=== PATIENT | female | born 1970 | race Caucasian/White ===

== ENCOUNTER 2017-12-06 01:48 | Inpatient (IN) | payer OTHER ==
[~2017-12-06] VITALS: Ht 165.1 cm; Wt 84.6 kg
[~2017-12-06 01:48] MED LIST: KEFLEX500 M1 PO
--- NOTE | 2017-12-06 01:57 | ED CARDIAC/CP/PALPITATIONS ---
History of Present Illness General Chief Complaint: Chest Pain Stated Complaint: " CHEST PAIN SINCE YESTERDAY MORNING,HEADACHE" Source: patient, old records Exam Limitations: no limitations Vital Signs & Intake/Output Vital Signs & Intake/Output Vital Signs Date Time Temp Pulse Resp B/P B/P Pulse O2 O2 Flow FiO2 Mean Ox Delivery Rate 12/068 103 20 124/77 98 Room Air 12/06 0210 99 Room Air 12/06 0158 98.1 101 18 144/74 99 Room Air Allergies Coded Allergies: iodine (Intermediate, RASH, BLISTERS 03/27/17) Reconcile Medications Cephalexin (Keflex) 500 MG CAPSULE 1 CAP PO 4 TIMES/DAY infected ingrown toenail Triage Note: PT TO ED C/O CHEST PAIN SINCE WAKING UP YESTERDAY MORNING. ALSO C/O MIGRAIN FOR 3-4 DAYS. PMH OF 3 AK'S. PAIN WORSE WITH MOVEMENT. DR ARSHAD AT BEDSIDE TO EVAL PT. SKIN WARM AND DRY Triage Nurses Notes Reviewed? yes HPI: Patient woke up yesterday morning with substernal chest tightness. The pain has been constant throughout the day but Increasing. Patient States It Also Worsens with Exercise and Then Decreases with Rest However Does Not Go Away. There Is No Shortness of Breath. Patient Had to Work This Evening and Could Not Get Anybody to Cover Her Shift but When Her Shift Ended She Came into the Emergency Department for Evaluation. She Rates the Tightness at 7 Out Of 10. She Denies Any Orthopnea. Patient is also complaining of headache that she has had for the past 4 days. Patient does of migraines and states this pain is similar to prior episodes. She describes a throbbing sensation above the left eye. Positive photophobia. No radiation. The pain is constant. She rates the pain at 5 out of 10. Past History Travel History Traveled to [place] past 21 day No Medical History Any Pertinent Medical History? see below for history Neurological: migraine Cardiovascular: CAD, hypertension, hyperlipidemia, myocardial infarction Endocrine: diabetes Surgical History Surgical History: non-contributory Psychosocial History What is your primary language Hebrew Tobacco Use: Quit >30 days ago ETOH Use: denies use Illicit Drug Use: denies illicit drug use Family History Hx Contributory? No Review of Systems Review of Systems Constitutional: Reports: no symptoms. EENTM: Reports: no symptoms. Respiratory: Reports: no symptoms. Cardiovascular: Reports: see HPI, chest pain. GI: Reports: no symptoms. Genitourinary: Reports: no symptoms. Musculoskeletal: Reports: no symptoms. Skin: Reports: no symptoms. Neurological/Psychological: Reports: see HPI, headache. Hematologic/Endocrine: Reports: no symptoms. Immunologic/Allergic: Reports: no symptoms. All Other Systems: Reviewed and Negative Physical Exam Physical Exam General Appearance: well developed/nourished, alert, awake, anxious, moderate distress Head: atraumatic, normal appearance Eyes: Bilateral: PERRL, EOMI. Ears, Nose, Throat: normal pharynx, normal ENT inspection, hearing grossly normal Neck: normal inspection, supple, full range of motion Respiratory: normal breath sounds, chest non-tender, no respiratory distress, lungs clear Cardiovascular: regular rate/rhythm, normal peripheral pulses Gastrointestinal: normal bowel sounds, soft, non-tender, no organomegaly Back: normal inspection, normal range of motion Extremities: normal inspection, normal capillary refill, normal range of motion, no edema Neurologic/Psych: no motor/sensory deficits, awake, alert, oriented x 3, normal gait, normal mood/affect Skin: intact, normal color, warm/dry Lymphatic: no anterior cervical tanika Core Measures ACS in differential dx? Yes CVA/TIA Diagnosis No Sepsis Present: No Sepsis Focused Exam Completed? No Progress Differential Diagnosis: AMI, costochondritis, musculoskeletal pain, myocarditis, pericarditis, pneumonia, pneumothorax, pulmonary embolism Plan of Care: Orders Procedure Date/time Status Heart Healthy Diet 12/06 B Active ED Holding Orders 12/06 310 Active Admit to inpatient 12/06 310 Active Vital Signs 12/06 031 Active Code Status 12/06 310 Active Telemetry/Director Of Outside Sales 12/06 015 Active TROPONIN LEVEL 12/06 015 Complete D-DIMER 12/06 015 Complete COMPREHENSIVE METABOLIC PANEL 12/06 015 Complete CBC WITHOUT DIFFERENTIAL 12/06 015 Complete EKG 12/06 0149 Active Current Medications Sig/Amadeo Start time Last Medication Dose Stop Time Status Admin Nitroglycerin 0.4 MG ONCE ONE 12/06 0230 UNVr 12/06 (Nitrostat) 12/06 023 0223 Laboratory Tests 12/06/17 0211: Anion Gap 14, Estimated GFR > 60, BUN/Creatinine Ratio 25.0, Glucose 171 H, Calcium 8.5, Total Bilirubin 1.9 H, AST 60 H, ALT 24, Alkaline Phosphatase 72, Troponin I 0.02, Total Protein 7.4, Albumin 3.7, Globulin 3.7, Albumin/Globulin Ratio 1.0 L, D-Dimer High Sensitivty < 200, CBC w Diff MAN DIFF ORDERED, RBC 3.93 L, MCV 85.3, MCH 30.5, MCHC 36.0, RDW 13.8, MPV 7.8, Segmented Neutrophils 38 L, Band Neutrophils 3, Lymphocytes 52 H, Monocytes 7, Platelet Estimate ADEQUATE, Normocytic RBCs VERIFIED, Normochromic RBCs VERIFIED Diagnostic Imaging: Viewed by Me: Radiology Read. Discussed w/RAD: Radiology Read. CXR Impression: PATIENT: JOSEPH DEE PRESENT AGE: 47 PATIENT ACCOUNT NO: [id number] : 69 LOCATION: [facility] ORDERING PHYSICIAN: Mumtaz Arshad MD SERVICE DATE: 12/06/17 EXAM TYPE: RAD - XRY- PORTABLE CHEST XRAY EXAMINATION: XR PORTABLE CHEST CLINICAL INFORMATION: Chest pain COMPARISON: None TECHNIQUE: Portable frontal view of the chest was obtained. FINDINGS: The lungs are clear with no focal consolidation. No evidence of pneumothorax, pulmonary edema, or pleural effusions. The cardiomediastinal silhouette is unremarkable. No acute osseous findings. IMPRESSION: No acute cardiopulmonary findings. DICTATED BY: Krzysztof Joy MD DATE/TIME DICTATED:08/25 SPARE PARTS CLERK:VERONICA DATE/TIME TRANSCRIBED:12/06/17237 CONFIDENTIAL, DO NOT COPY WITHOUT APPROPRIATE AUTHORIZATION. <Electronically signed in Other Vendor System> SIGNED BY: Krzysztof Joy MD 12/06/17241 Initial ED EKG: NSR, no ST T wave changes Rhythm Strip: normal sinus rhythm Comments: PAIN DECREASED TO 2 OUTOF 10 AFTER NITRO PAIN IS GONE AFTER SECOND NITRO. Departure Departure Disposition: STILL A PATIENT Condition: Guarded Clinical Impression Primary Impression: ACS (acute coronary syndrome) Secondary Impressions: Migraine Referrals: Unknown (PCP/Family) Departure Forms: Customer Survey General Discharge Information Admission Note Spoke With: Thompson Temple MD Documentation of Exam: Documentation of any treatments & extenuating circumstances including Concerns Regarding Discharge (functional status, medication knowledge or non-compliance, living conditions, etc.) that warrant an admission rather than observation: [ TELE MONITORING, SERIAL ENZYMES, CARDIOLOGY CONSULTATION, POSSIBLE CATH, IV HEPARIN IF PAIN COMES BACK.] Critical Care Note Critical Care Note Critical Care Time: mins: (45 MIN)
--- NOTE | 2017-12-06 02:42 | RADIOLOGY REPORT ---
EXAMINATION: XR PORTABLE CHEST CLINICAL INFORMATION: Chest pain COMPARISON: None TECHNIQUE: Portable frontal view of the chest was obtained. FINDINGS: The lungs are clear with no focal consolidation. No evidence of pneumothorax, pulmonary edema, or pleural effusions. The cardiomediastinal silhouette is unremarkable. No acute osseous findings. IMPRESSION: No acute cardiopulmonary findings.
[2017-12-06 03:00] LABS: HEMATOCRIT 33.5 % (37-47); MEAN CORPUSCULAR VOLUME 85.3 FL (81.0-99.0); MEAN PLATELET VOLUME 7.8 FL (7.4-10.4); PLATELET COUNT 272 /CUMM (130-400); RBC DISTRIBUTION WIDTH 13.8 % (11.5-14.5); RED BLOOD CELL CT 3.93 /CUMM (4.20-5.40)
[2017-12-06 03:02] LABS: MEAN CORPUSCULAR HGB 30.5 PG (27.0-31.0)
--- NOTE | 2017-12-06 04:17 | History & Physical ---
Malika Marcelino MD 12/06/17 0417: General Information and HPI MD Statement: I have seen and personally examined JOSEPH DEE and documented this H&P. The patient is a 47 year old F who presented with a patient stated chief complaint of [chest pain]. Source of Information: patient Exam Limitations: no limitations History of Present Illness: Patient is a 47-year-old female with past medical history of recently diagnosed obstructive sleep apnea on CPAP for the past few weeks, CAD status post 3 MIs and 2 stents currently on a baby aspirin, hypertension, hyperlipidemia, diabetes presenting this admission with chief complaint of chest pain. Patient states that she started having chest pain the morning of 12/05. Describes the pain as diffuse, epigastric pain that radiates to the sides underneath her breasts and up to her jaw and back. Patient describes the pain as a heaviness and rates it a 6-8 out of 10 in severity. Pain decreased to 2 out of 10 after receiving nitroglycerin 1 in the ED and completely resolved with a second dose of nitroglycerin. Patient reports that the pain occurs both at rest and with exertion howeverthat it does worsen with activity. Patient denies shortness of breath, palpitations, diaphoresis, nausea/vomiting. Reports bilateral leg swelling. Patient also reports having migraines for the past few days. Patient notes that she has a history of migraines however has not had them for quite some time until now. Patient states that she has been taking Excedrin which has helped. Patient reports photophobia with migraine. Patient's past medical history is notable for 3 myocardial infarctions in the past with 2 stents. Patient had her first stent in 2006 which stenosed and patient required a second stent 8 months after which patient also reports failed however patient is unsure if she had a cardiac cath to confirm this. 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 Rowell in [place]. Reports she last had an EKG treadmill stress test in 2017 which she states was normal. Past surgical history: Stents 2, Patient family history significant for coronary artery disease with both her dad and grandmother requiring open heart surgery. Reports mother has diabetes and hypertension. Patient reports increased stress at work. States that she works at [employer] and has been working a lot of nights which is why she waited until this evening to be seen in the ED. Patient denies smoking (quit 7 years prior to this admission ), denies illicit drug use or alcohol use. Patient denies any recent travel or sick contacts. Patient denies any allergies to medications. Patient reports that she is on insulin long-acting 10 units at bedtime (is unsure of exact medication), Janumet twice a day, farsiga, metoprolol, fenofibrate, Crestor, lisinopril, aspirin, Prilosec. In the ED patient received aspirin 325 mg, Tylenol 650 mg, nitroglycerin 0.4 mg Allergies/Medications Allergies: Coded Allergies: iodine (Intermediate, RASH, BLISTERS 03/27/17) Home Med list Aspirin (Ecotrin*) 81 MG TABLET.DR 1 TAB PO DAILY CAD (Reported) Fenofibrate Nanocrystallized (Tricor) 145 MG TABLET 1 TAB PO DAILY HLD Insulin Regular (Novolin R Inj) 1,000 UNITS/10 ML DRE 0 UNITS SC SEE ADMIN CRITERIA DIABETES (Reported) Metoprolol Tartrate 25 MG TABLET 0.5 TAB PO DAILY HEART (Reported) Rosuvastatin Calcium (Crestor) 40 MG TABLET 1 TAB PO DAILY HLD (Reported) Past History Travel History Traveled to [place] past 21 day No Medical History Neurological: migraine Cardiovascular: CAD, hypertension, hyperlipidemia, myocardial infarction Endocrine: diabetes Surgical History Surgical History: non-contributory Past Family/Social History Psychosocial History ETOH Use: denies use Illicit Drug Use: denies illicit drug use Review of Systems Review of Systems Constitutional: Reports: no symptoms. Cardiovascular: Reports: see HPI. Respiratory: Reports: no symptoms. GI: Reports: no symptoms. Genitourinary: Reports: no symptoms. Musculoskeletal: Reports: no symptoms. Skin: Reports: no symptoms. Neurological/Psychological: Reports: see HPI. Hematologic/Endocrine: Reports: no symptoms. Immunologic/Allergic: Reports: no symptoms. Exam & Diagnostic Data Last 24 Hrs of Vital Signs/I&O Vital Signs Date Time Temp Pulse Resp B/P B/P Pulse O2 O2 Flow FiO2 Mean Ox Delivery Rate 12/06 022 103 20 124/77 98 Room Air 12/06 0210 99 Room Air 12/06 0158 98.1 101 18 144/74 99 Room Air Intake & Output 12/06 0800 12/06 0000 12/05 1600 Intake Total 0 Output Total Balance 0 Intake, Oral 0 Patient 186 lb Weight Weight Reported by Patient Measurement Method Physical Exam General Appearance Alert, Oriented X3, Cooperative, No Acute Distress Skin No Rashes, No Breakdown, No Significant Lesion Skin Temp/Moisture Exam: Warm/Dry HEENT Atraumatic, PERRLA, EOMI, Mucous Membr. moist/pink Cardiovascular Regular Rate, Normal S1, Normal S2, No Murmurs Lungs Clear to Auscultation, Normal Air Movement Abdomen Normal Bowel Sounds, Soft, No Tenderness Neurological Normal Speech, Cranial Nerves 3-12 NL Extremities No Clubbing, No Cyanosis, No Edema, Normal Pulses, No Tenderness/ Swelling Vascular Normal Pulses, Pulses Symmetrical Last 24 Hrs of Labs/Reese: Laboratory Tests 12/06/17 0211: Anion Gap 14, Estimated GFR > 60, BUN/Creatinine Ratio 25.0, Glucose 171 H, Calcium 8.5, Phosphorus 4.9 H, Magnesium 1.3 L, Total Bilirubin 1.9 H, AST 60 H, ALT 24, Alkaline Phosphatase 72, Troponin I 0.02, Total Protein 7.4, Albumin 3.7, Globulin 3.7, Albumin/Globulin Ratio 1.0 L, TSH Pending, Free T4 Pending, D-Dimer High Sensitivty < 200, CBC w Diff MAN DIFF ORDERED, RBC 3.93 L, MCV 85.3, MCH 30.5, MCHC 36.0, RDW 13.8, MPV 7.8, Segmented Neutrophils 38 L, Band Neutrophils 3, Lymphocytes 52 H, Monocytes 7, Platelet Estimate ADEQUATE, Normocytic RBCs VERIFIED, Normochromic RBCs VERIFIED Assessment/Plan Assessment: Patient is as 47-year-old female with significant cardiac history presenting this admission with typical anginal symptoms with substernal pain radiating to the jaw relieved with nitroglycerin. Patient's EKG and troponins are negative at this time. Patient has a significant cardiac risk with a ALLISON score of 4. giving her a 20% risk at 14 days of all cause mortality, new or recurrent NC or severe recurrent ischemia requiring urgent revascularization. It is therefore prudent to admit the patient to the telemetry floor for close monitoring. 1. ACS, Unstable angina - Admit to telemetry - Continuous telemetry monitoring - Serial EKG and troponins - Cardiology consult - Aspirin 81 mg - Morphine when necessary - Nitroglycerin when necessary - Oxygen supplementation when necessary - Echo - Lipid panel - TSH - Continue atorvastatin - Continue low-dose metoprolol - Continue lisinopril 2. History of diabetes - Hold all oral hypoglycemic agents - Place on insulin sliding scale with Accu-Cheks 3 times a day/daily at bedtime - Lantus 10 units at bedtime - Hemoglobin A1c 3. History of obstructive sleep apnea - TRC - CPAP at night 4. History of hypertension - Continue metoprolol and lisinopril 5. History of hyperlipidemia - Continue statin and fenofibrate 6. History of GERD - Continue Prilosec 7. Migraine - now resolved Code: Full code DVT prophylaxis: Alps, Lovenox Diet: Consistent carbohydrate diet As Ranked By This Provider Problem List: 1. ACS (acute coronary syndrome) 2. Migraine Core Measures/Misc (04/24) Acute Coronary Syndrome ACS Diagnosis: Yes Congestive Heart Failure Congestive Heart Failure Diagnosis No Cerebrovascular Accident CVA/TIA Diagnosis: No VTE (View Protocol) VTE Risk Factors Age>40 No Mechanical VTE Prophylaxis d/t N/A MechProphylax Ordered No VTE Pharm Prophylaxis d/t NA PharmProphylax ordered Sepsis (View protocol) Sepsis Present: No Inocente Myles 12/06/17 0419: Resident Review Statement Resident Statement: examined this patient, discussed with fall intern, agreed with fall intern, reviewed EMR data (avail), discussed with nursing, discussed with case mgmt, reviewed images, amended to note Other Findings: This is 47 year-old female with medical history of CAD, myocardial infarction s/ p 2 stent 2006, hypertension, hyperlipidemia, DM type 2 on insulin, migraine, recently diagnosed with obstructive sleep apnea on CPAP. She presented to the emergency department with a chief complaint of substernal chest tightness and pain. She stated that when she woke up yesterday morning the substernal chest tightness/pain started. She report that the pain has been constant throughout the day on/off, -02/14 inseverity but start to increasing during the night and also worsens with exercise and then decreases with rest but not completely resolved. Patient is also complaining of headache that she has had for the past 4 days. Patient has Hx of migraines and states this pain is similar to prior episodes. She stated that she had 2 stent placed, she stated that the 1st one was in mid 2006 that failed after 8 month and she had another one, she report that she had total of 3 cardic cath, and one recent stress test last year that was within normal. She deny any SOB, heart racing, orthopnea, fever, chills, abdominal pain, nausea, vomiting. Her pain subsided after receiving 2 doses of sublingual nitroglycerin in the ED. Physical examination, lab and imaging as above. ALLISON Risk Score=4. Problem list: -Acute chest pain -Unstable angina Plan: -Admit patient to telemetry floor -Vitals every shift -Serial troponin and EKG -Echocardiogram -Obtain lipid panel, TSH, free T4, hemoglobin A1c -Sublingual nitroglycerin as needed for chest pain and IV morphine. -Continue home medication of aspirin, metoprolol, lisinopril, atorvastatin, fenofibrate -Cardiology consultation in a.m. -Accu-Chek, insulin sliding scale, Levemir 10 units Qpm -Carbohydrate consistent diet -Please confirm her home medication -Pain pathway -DVT prophylaxis subcutaneous Lovenox -Full code. Maverick MARTELL, [facility] 12/06/17 0454: Attending MD Review Statement Attending Statement Attending MD Statement: examined this patient, discuss w/resident/PA/CONTACT OFFICER, agreed w/resident/PA/CONTACT OFFICER, reviewed images, amended to note Attending Assessment/Plan: 47 yo obese F with h/o T2DM, HTN, CAD s/p NC's X3 and two stents (2006), HLD, DEREK on CPAP is here for evaluation of substernal chest heaviness radiating to bilateral shoulder and jaw region. Symptoms started earlier yesterday morning and gradually increased in severity. It was worse on exertion and would be less severe at rest, however did not go away. Patient works night shifts at [employer] and has been trying to shift to daytime jobs. She was at work tonight and came to the ER as soon as her shift ended at 2 AM. She received first nitro whcih brought the pain down from 7 to 2 and with second nitro the pain disappeared. She was pain free at the time of our evaluation. Patient used to follow [employer] Dr. Hastings ([place] [facility]) but has not seen him for over 7 yrs. She states that her stents have failed but she had been symptom free all these years. She underwent an exercise stress test last year which was normal as per PCP. Patient has a h/o migraine headaches and recently suffered one few days ago. Currently she has a headache but no photophobia which she attributes to nitro use. Vitals stable except for tachycardia. Exam as above. Labs: Na 132, bicarb 17, glucose 171, Mag 1.3, T. Bili 1.9, AST 60, ALT 24, troponin 0.02. CXR: no acute findings. EKG: sinus tachycardia, no acute findings. Assessment and plan: 1. Unstable angina, high ALLISON score 2. History of CAD s/p NC and stents 3. Hypomagnesemia 4. Elevated total bilirubin and AST ?etiology 5. T2 DM on insulin 6. Essential hypertension 7. Obesity - Admit to Telemetry - Serial EKG and troponin - Continue aspirin, beta altagracia, statin, morphine, nitro, oxygen supplementation - Obtain Echocardiogram - Cardio consult - Obtain records from PCP (most recent stress test) and [employer] Dr. Hastings - Patient currently pain-free, please d/w cardiology about initiation of IV heparin - Check urinalysis and urine tox screen - Check lipid panel, TSH, free T4, HbA1c - Diabetes management, hold jessica penny, start novolog SS - NPO until evaluated by cardiology in AM, in case need for cardiac cath - Replete electrolytes to keep Mag > 2.0 and K > 4.0 - Fractionate bilirubin and trend LFTs after gentle hydration DVT ppx lovenox. Full code.
--- NOTE | 2017-12-06 04:54 | Admission Certification ---
Admission Certification Certification Statement - As attending physician, I certify that at the time of - admission, based on clinical presentation, severity of - symptoms, need for further diagnostic testing and - therapeutic interventions, and risk of adverse outcomes - without in-hospital treatment, in my clinical assessment, - this patient requires an acute hospital stay for a minimum - of two nights or longer. I have also considered psychsocial - factors such as support system, advanced age, financial - issues, cognitive issues, and failed out-patient treatments, - past re-admission history, safety of patient, and lack of - compliance as applicable. Specific rationale supporting this admission is: Unstable angina
[2017-12-06 06:00] VITALS: BP 138/62
[2017-12-06 08:03] LABS: HEMATOCRIT 31.3 % (37-47); MEAN CORPUSCULAR HGB 30.8 PG (27.0-31.0); MEAN CORPUSCULAR HGB CONC 35.6 G/DL (33.0-37.0); MEAN CORPUSCULAR VOLUME 86.4 FL (81.0-99.0); MEAN PLATELET VOLUME 7.9 FL (7.4-10.4); PLATELET COUNT 248 /CUMM (130-400); RBC DISTRIBUTION WIDTH 13.9 % (11.5-14.5); RED BLOOD CELL CT 3.63 /CUMM (4.20-5.40); WHITE BLOOD CELL COUNT 4.8 /CUMM (4.8-10.8)
--- NOTE | 2017-12-06 08:24 | PN- Housestaff ---
Nehemias MARTELL,Marlyn 12/06/17 0823: Subjective Follow-up For: Chest pain Subjective: saw pt at bedside this AM. No acute overnight events or complaints. She states her chest pain has resolved at this time. Review of Systems Constitutional: Denies: fever, weakness. EENTM: Reports: no symptoms. Cardiovascular: Denies: chest pain, palpitations. Respiratory: Reports: no symptoms. Gastrointestinal: Reports: no symptoms. Genitourinary: Reports: no symptoms. Musculoskeletal: Reports: no symptoms. Objective Last 24 Hrs of Vital Signs/I&O Vital Signs Date Time Temp Pulse Resp B/P B/P Pulse O2 O2 Flow FiO2 Mean Ox Delivery Rate 12/06 599 98.9 95 16 138/62 98 12/06 0450 Room Air 12/06 0228 103 20 124/77 98 Room Air 12/06 0210 99 Room Air 12/06 0158 98.1 101 18 144/74 99 Room Air Intake & Output 12/06 1600 12/06 0800 12/06 0000 Intake Total 200 Output Total Balance 200 Intake, Oral 200 Patient 84.567 kg 84.368 kg Weight Weight Bed scale Reported by Patient Measurement Method Physical Exam General Appearance: Alert, Oriented X3, Cooperative, No Acute Distress Skin: No Significant Lesion HEENT: Atraumatic, PERRLA, EOMI Neck: Supple Cardiovascular: Regular Rate, Normal S1, Normal S2, No Murmurs Lungs: Normal Air Movement Abdomen: Soft, No Tenderness Neurological: Normal Speech, Normal Tone Extremities: No Edema Current Medications: Current Medications Sig/Amadeo Start time Last Medication Dose Route Stop Time Status Admin Acetaminophen 650 MG Q6P PRN 12/06 0415 AC PO Acetaminophen 0 .STK-MED ONE 12/06 021 DC PO Acetaminophen 650 MG ONCE ONE 12/06 199 DC 12/06 PO 12/06 020 0212 Aspirin 81 MG DAILY 12/06 899 AC PO Aspirin 0 .STK-MED ONE 12/06 0213 DC PO Aspirin 325 MG ONCE ONE 12/06 020 DC 12/06 PO 12/06 020 0212 Atorvastatin Calcium 80 MG 1700 12/06 1700 AC PO Dextrose/Sodium 1,000 ML ONCE ONE 12/06 899 AC Chloride IV 12/06 2218 Enoxaparin Sodium 40 MG DAILY 12/06 899 AC SC Fenofibrate 48 MG DAILY 12/06 899 AC PO Insulin Aspart 0 TIDAC 12/06 0800 CAN SC Insulin Detemir 10 UNITS QPM 12/06 2100 AC SC Insulin Human Regular 0 Q6 12/06 0655 AC SC Lisinopril 5 MG DAILY 12/06 899 AC PO Magnesium Sulfate 1 GM ONCE ONE 12/06 599 AC 12/06 Dextrose/Water 100 ML IV 12/06 958 0716 Metoprolol Tartrate 12.5 MG BID 12/06 899 AC PO Morphine Sulfate 2 MG Q4P PRN 12/06 0415 AC IV Nitroglycerin 0.4 MG ONCE PRN 12/06 899 AC SL Nitroglycerin 0.4 MG ONCE ONE 12/06 0230 DC 12/06 SL 12/06 023 0223 Nitroglycerin 0 .STK-MED ONE 12/06 021 DC SL Nitroglycerin 0.4 MG ONCE ONE 12/06 0200 DC 12/06 SL 12/06 0201 0212 Omeprazole 40 MG DAILY AC 12/06 699 AC PO Sodium Chloride 1,000 ML Q13H 12/06 699 DC IV Last 24 Hrs of Lab/Reese Results Last 24 Hrs of Labs/Mics: Laboratory Tests 12/06/17 0740: Urine Opiates Screen < 100, Methadone Screen < 40, Barbiturate Screen < 60, Ur Phencyclidine Scrn < 6.00, Amphetamines Screen < 100, U Benzodiazepines Scrn < 85, Urine Cocaine Screen < 50, Urine Cannabis Screen < 5.00, Urine Color YEL, Urine Clarity CLEAR, Urine pH 6.0, Ur Specific Crawford 1.020, Urine Protein NEG, Urine Ketones TRACE H, Urine Nitrite NEG, Urine Bilirubin NEG, Urine Urobilinogen 0.2, Ur Leukocyte Esterase NEG, Ur Microscopic EXAM NOT REQUIRED, Urine Hemoglobin NEG, Urine Glucose >=1000 H 12/06/17 0620: Hemoglobin A1c Pending 12/06/17 0620: Anion Gap 12, Estimated GFR > 60, BUN/Creatinine Ratio 25.0, Troponin I < 0.01, Triglycerides 3293 H, Cholesterol 281 H, LDL Cholesterol Direct < 30.00, LDL Cholesterol, Calc ND, HDL Cholesterol 31 L, Cholesterol/HDL Ratio 9 H, CBC w Diff MAN DIFF ORDERED, RBC 3.63 L, MCV 86.4, MCH 30.8, MCHC 35.6, RDW 13.9, MPV 7.9, Segmented Neutrophils Pending 12/06/17 0211: Anion Gap 14, Estimated GFR > 60, BUN/Creatinine Ratio 25.0, Glucose 171 H, Calcium 8.5, Phosphorus 4.9 H, Magnesium 1.3 L, Total Bilirubin 1.9 H, AST 60 H, ALT 24, Alkaline Phosphatase 72, Troponin I 0.02, Total Protein 7.4, Albumin 3.7, Globulin 3.7, Albumin/Globulin Ratio 1.0 L, TSH 1.730, Free T4 1.39, D- Dimer High Sensitivty < 200, CBC w Diff MAN DIFF ORDERED, RBC 3.93 L, MCV 85.3, MCH 30.5, MCHC 36.0, RDW 13.8, MPV 7.8, Segmented Neutrophils 38 L, Band Neutrophils 3, Lymphocytes 52 H, Monocytes 7, Platelet Estimate ADEQUATE, Normocytic RBCs VERIFIED, Normochromic RBCs VERIFIED Assessment/Plan Assessment: This allan 47 yo female with PMH of CAD s/p myocardial infarction s/p 2 stent 2006, hypertension, hyperlipidemia, DM type 2 on insulin, migraine, recently diagnosed with obstructive sleep apnea on CPAP and a supposedly normal stress test about one year ago. Given her ALLISON score of 4 and her PMH and strong family hx of coronary disease the pretest probability that pt is having myocardial ischemia related chest pain is very high. She would benfit from aggressive cardiac work up of her chest pain. PLAN 1. Chest pain: * asa * statin * Nitrate PRN * Pt is NPO for likelyhood of cath * monitor on tele * echo pending * TSH/T4 wnl * Appreciate cardio consult * Lipid panel significantly abnormal (TG >3000) * Pending HBA1c * Two sets troponin negative * Con't Metoprolol * Con't Lisinopril 2. Hyperlipidemia:TG over 3000. * Pt on statin and fibrate * Appreciate endo consult 3. Hypok: Repleted. FC Chem dvt ppx NPO Problem List: 1. ACS (acute coronary syndrome) Pain Ratin Pain Location: none Pain Goal: Remain pain free Pain Plan: none Tomorrow's Labs & Rationales: cbc bep Rosetta Angelo 12/06/17 1036: Attending MD Review Statement Attending Statement Attending MD Statement: examined this patient, discuss w/resident/PA/LOAN SERVICING OFFICER, agreed w/resident/PA/LOAN SERVICING OFFICER, discussed with family, reviewed EMR data (avail), discussed with nursing, discussed with case mgmt, reviewed images, amended to note Attending Assessment/Plan: 47 o/f with chest pain in high risk patient. Patient denies chest pain this am, no shortness of breath, palpitations. She follows cardiology at [facility] and PCP at [facility]. Cardiology consulted during this hospital stay. Patient has hypertriglyceredemia and on statin and fenofibrate 48 mg. Conisder endocrinology consult i/p vs o/p. Plan for ischemic w/u as per cardiology. gi/dvt prophyalxis full code. Plan of care d/wed patient bedside.
--- NOTE | 2017-12-06 12:43 | Cons- Endocrinology ---
General Information and HPI Consulting Request Date of Consult: 12/06/17 Requested By: medical team Reason for Consult: management of severe hypertriglyceridemia and uncontrolled diabetes type 2 with HbA1c of 9.0%. Source of Information: patient Exam Limitations: no limitations History of Present Illness: Patient is a 47-year-old female with past medical history of recently diagnosed obstructive sleep apnea on CPAP , CAD status post 3 MIs and 2 stents current, hypertension, hyperlipidemia and diabetes type 2 which was diagnosed when she was 36 years old. She was admitted for chest pain. At home, she was on Janumet mg twice a day and Farxiga 10 mg daily. As per patient, her HbA1c was 7.5% one month ago and basal insulin 10 units daily at bedtime was initiated. However, over past one month, she has been working at [employer] everyday till 2 am. In addition, she was on crestor 20 mg daily and fenofibrate 145 mg daily for dyslipidemia. She has had a hx of intolerance to Lipitor due to muscle symptoms. She has a strong family hx of diabetes type 2 and dyslipidemia from her mother side of family, she has a strong cardiac history from her father side of family. Her paternal uncle of massive heart attack in his 40s. At this point, she has been kept NPO for possible CATH and is on D 5 NS at 75 ml /hour. She was put on Levemir 10 units daily at bedtime and RISS every 6 hours. Her FSGs were 139 and 155. In hospital, she was put on Atorvastatin 80 mg daily and fenofibrate 48 mg daily. At this point, she is asymptomatic. Allergies/Medications Allergies: Coded Allergies: iodine (Intermediate, RASH, BLISTERS 03/27/17) Home Med List: Aspirin (Ecotrin*) 81 MG TABLET.DR 1 TAB PO DAILY CAD (Reported) Fenofibrate Nanocrystallized (Tricor) 145 MG TABLET 1 TAB PO DAILY HLD Insulin Regular (Novolin R Inj) 1,000 UNITS/10 ML DRE 0 UNITS SC SEE ADMIN CRITERIA DIABETES (Reported) Metoprolol Tartrate 25 MG TABLET 0.5 TAB PO DAILY HEART (Reported) Rosuvastatin Calcium (Crestor) 40 MG TABLET 1 TAB PO DAILY HLD (Reported) Review of Systems Review of Systems Constitutional: Reports: see HPI. Cardiovascular: Reports: chest pain. Respiratory: Denies: short of breath. GI: Denies: abdominal pain. Musculoskeletal: Denies: back pain. Hematologic/Endocrine: Reports: see HPI. 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 Home Services at Home: None Smoking Status: Former Smoker ETOH Use: denies use Illicit Drug Use: denies illicit drug use Exam & Diagnostic Data Last 24 Hrs of Vital Signs/I&O Vital Signs Date Time Temp Pulse Resp B/P B/P Pulse O2 O2 Flow FiO2 Mean Ox Delivery Rate 12/07 0959 110/66 / 0656 98.1 92 18 110/66 95 Room Air 12/07 0013 90 108/64 05/ 0011 108/64 05 2301 97.7 94 18 88/58 96 Room Air 12/06 1358 97.6 89 18 110/64 95 Room Air Intake & Output 12/07 1600 / 0800 / 0000 Intake Total 525 Output Total Balance 525 Intake, IV 525 Physical Exam General Appearance: no apparent distress Respiratory: chest non-tender Cardiovascular: regular rate/rhythm Gastrointestinal: soft Extremities: no edema Assessment/Plan Assessment/Plan Patient is a 47-year-old female with past medical history of obstructive sleep apnea on CPAP , CAD status post 3 MIs and 2 stents, hypertension, hyperlipidemia and diabetes type 2 which was diagnosed when she was 36 years old. She was admitted for chest pain. She was found to have significantly elevated TRIG of above 3000 and HbA1c of 9.0%. She has been kept NPO for possible CATH. 1. DM type 2: ---her FSGs were stable at this point; I will continue the current insulin regimen for now; ---continue monitoring FSGs. ---consider holding off on Farxiga upon discharge. She probably should be on an insulin regimen till her TRIG level is better controlled. 2. hypertriglyceridemia: --- consider changing Atorvastatin to Rosuvastatin as she has had hx of lipitor intolerance; ---increase Fenofibrate to 145 mg daily; --- consider adding FISH OIL after CATH is done; ---low fat consistent carbohydrates 1 diet when she is ready to eat; ---repeat lipid panel tomorrow. 3. recommend nutrition consult will follow Consult Acknowledgment - Thank you for your consult request.
--- NOTE | 2017-12-06 12:59 | Cons- Cardiology ---
General Information and HPI Consulting Request Date of Consult: 12/06/17 Requested By: Gi MARETLL,Rosetta Reason for Consult: unstable angina Source of Information: patient History of Present Illness: Young woman with history of hypertriglyceridemia, early onset CAD with PCI/ stenting 2006 and 2009 at [facility]. Also has diabetes type 2, last HbA1C 7% according to patient, hypertension with satisfactory control with current regimen. 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 At the end of her shift, around 1AM, drove herself to the ED, where she was relieved with 2 sl nitroglycerin doses. No EKG changes observed and troponins have been negative. No recurrence of chest pains since. Last episode of chest pain was in 2009, at which time she underwent a coronary cath which did not result in stenting (No lesion? Unfavorable anatomy?). Otherwise denies SOB, palpitations, syncope, dizziness, orthopnea, bleeding. Is currently only on ASA, plavix discontinued a few years ago. Allergies/Medications Allergies: Coded Allergies: iodine (Intermediate, RASH, BLISTERS 03/27/17) Home Med List: Aspirin (Ecotrin*) 81 MG TABLET.DR 1 TAB PO DAILY CAD (Reported) Fenofibrate Nanocrystallized (Tricor) 145 MG TABLET 1 TAB PO DAILY HLD Insulin Regular (Novolin R Inj) 1,000 UNITS/10 ML DRE 0 UNITS SC SEE ADMIN CRITERIA DIABETES (Reported) Metoprolol Tartrate 25 MG TABLET 0.5 TAB PO DAILY HEART (Reported) Rosuvastatin Calcium (Crestor) 40 MG TABLET 1 TAB PO DAILY HLD (Reported) Current Medications: Current Medications Sig/Amadeo Start time Last Medication Dose Route Stop Time Status Admin Acetaminophen 650 MG Q6P PRN 12/06 0415 AC 12/06 PO 1012 Acetaminophen 0 .STK-MED ONE 12/06 0213 DC PO Acetaminophen 650 MG ONCE ONE 12/06 020 DC 12/06 PO 12/06 200 0212 Aspirin 81 MG DAILY 12/06 0900 AC 12/06 PO 0921 Aspirin 0 .STK-MED ONE 12/06 0213 DC PO Aspirin 325 MG ONCE ONE 12/06 0200 DC 12/06 PO 12/06 020 0212 Atorvastatin Calcium 80 MG 1700 12/06 1700 AC PO Dextrose/Sodium 1,000 ML ONCE ONE 12/06 0900 AC 12/06 Chloride IV 12/06 2219 0918 Enoxaparin Sodium 40 MG DAILY 12/06 0900 AC 12/06 SC 1012 Fenofibrate 48 MG DAILY 12/06 0900 AC 12/06 PO 0921 Insulin Aspart 0 TIDAC 12/06 0800 CAN SC Insulin Detemir 10 UNITS QPM 12/06 2100 AC SC Insulin Human Regular 0 Q6 12/06 0655 AC 12/06 SC 1211 Lisinopril 5 MG DAILY 12/06 0900 AC 12/06 PO 0923 Magnesium Sulfate 1 GM ONCE ONE 12/06 0600 DC 12/06 Dextrose/Water 100 ML IV 12/06 0959 0716 Metoprolol Tartrate 12.5 MG BID 12/06 0900 AC 12/06 PO 0923 Morphine Sulfate 2 MG Q4P PRN 12/06 0415 AC IV Nitroglycerin 0.4 MG ONCE PRN 12/06 0900 AC SL Nitroglycerin 0.4 MG ONCE ONE 12/06 0230 DC 12/06 SL 12/06 0231 0223 Nitroglycerin 0 .STK-MED ONE 12/06 0213 DC SL Nitroglycerin 0.4 MG ONCE ONE 12/06 0200 DC 12/06 SL 12/06 0201 0212 Omeprazole 40 MG DAILY AC 12/06 0700 AC 12/06 PO 0920 Potassium Chloride 40 MEQ Q1 12/06 1000 DC 12/06 PO 12/06 1101 1211 Sodium Chloride 1,000 ML Q13H 12/06 0700 DC IV Review of Systems Review of Systems: See HPI Past History Travel History Traveled to [place] past 21 day No Medical History Blood Transfusion Hx: No Neurological: migraine EENT: NONE Cardiovascular: CAD, hypertension, hyperlipidemia, myocardial infarction Respiratory: NONE Gastrointestinal: NONE Hepatic: NONE Renal: NONE Musculoskeletal: NONE Psychiatric: NONE Endocrine: diabetes Blood Disorders: NONE Cancer(s): 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 Home Services at Home: None Smoking Status: Former Smoker ETOH Use: denies use Illicit Drug Use: denies illicit drug use Exam & Diagnostic Data Vital Signs and I&O Vital Signs Date Time Temp Pulse Resp B/P B/P Pulse O2 O2 Flow FiO2 Mean Ox Delivery Rate 05/01 0923 89 144/86 12/06 0923 89 144/86 12/06 06 98.9 95 16 138/62 98 12/06 0450 Room Air 12/06 0228 103 20 124/77 98 Room Air 12/06 0210 99 Room Air 12/06 0158 98.1 101 18 144/74 99 Room Air Intake & Output 12/06 0812/06 0000 12/05 1600 12/05 0812/05 0000 Intake Total 200 Output Total Balance 200 Intake, Oral 200 Patient 186 lb 186 lb Weight Weight Bed scale Reported by Patient Measurement Method Physical Exam General Appearance: well developed/nourished, no apparent distress, alert, awake , comfortable Head: atraumatic Ears, Nose, Throat: normal ENT inspection Neck: supple, trachea mid line (no JVD, no carotid bruit) Respiratory: normal breath sounds, chest non-tender, lungs clear Cardiovascular: regular rate/rhythm, normal peripheral pulses (no murmur), bradycardia (normal apical impulse) Gastrointestinal: normal bowel sounds, soft, non-tender, no organomegaly Extremities: normal inspection, normal capillary refill, no edema Neurologic/Psych: no motor/sensory deficits, oriented x 3 Labs/Reese Results: Laboratory Tests 12/06 12/06 0740 0620 Chemistry Hemoglobin A1c (4.2 - 5.8 %) 9.0 H Toxicology Urine Opiates Screen (>2000 NG/ML) < 100 Methadone Screen (>300 NG/ML) < 40 Barbiturate Screen (>200 NG/ML) < 60 Ur Phencyclidine Scrn (>25 NG/ML) < 6.00 Amphetamines Screen (>1000 NG/ML) < 100 U Benzodiazepines Scrn (>200 NG/ML) < 85 Urine Cocaine Screen (>300 NG/ML) < 50 Urine Cannabis Screen (>50 NG/ML) < 5.00 Urines Urine Color (YEL,AMB,STR) YEL Urine Clarity (CLEAR) CLEAR Urine pH (5.0 - 8.0) 6.0 Ur Specific Mobile (1.001 - 1.035) 1.020 Urine Protein (NEG,<30 MG/DL) NEG Urine Ketones (NEG) TRACE H Urine Nitrite (NEG) NEG Urine Bilirubin (NEG) NEG Urine Urobilinogen (0.1 - 1.0 EU/dl) 0.2 Ur Leukocyte Esterase (NEG) NEG Ur Microscopic EXAM NOT REQUIRED Urine Hemoglobin (NEG) NEG Urine Glucose (N MG/DL) >=1000 H 12/06 12/06 0620 0211 Chemistry Sodium (137 - 145 mmol/L) 135 L 132 L Potassium (3.5 - 5.1 mmol/L) 3.2 L 4.6 Chloride (98 - 107 mmol/L) 102 101 Carbon Dioxide (22 - 30 mmol/L) 21 L 17 L Anion Gap (5 - 16) 12 14 BUN (7 - 17 mg/dL) 10 10 Creatinine (0.5 - 1.0 mg/dL) 0.4 L 0.4 L Estimated GFR (>60 ml/min) > 60 > 60 BUN/Creatinine Ratio (7 - 25 %) 25.0 25.0 Glucose (65 - 99 mg/dL) 171 H Calcium (8.4 - 10.2 mg/dL) 8.5 Phosphorus (2.5 - 4.5 mg/dL) 4.9 H Magnesium (1.6 - 2.3 mg/dL) 1.3 L Total Bilirubin (0.2 - 1.3 mg/dL) 1.9 H AST (14 - 36 U/L) 60 H ALT (9 - 52 U/L) 24 Alkaline Phosphatase (<127 U/L) 72 Troponin I (< 0.11 ng/ml) < 0.01 0.02 Total Protein (6.3 - 8.2 g/dL) 7.4 Albumin (3.5 - 5.0 g/dL) 3.7 Globulin (1.9 - 4.2 gm/dL) 3.7 Albumin/Globulin Ratio (1.1 - 2.2 %) 1.0 L Triglycerides (<150 mg/dL) 3293 H Cholesterol (<200 MG/DL) 281 H LDL Cholesterol Direct (<100 mg/dL) < 30.00 LDL Cholesterol, Calc (65 - 129 mg/dL) ND HDL Cholesterol (40 - 60 mg/dL) 31 L Cholesterol/HDL Ratio (0.00 - 4.23 %) 9 H TSH (0.270 - 4.200 uIU/mL) 1.730 Free T4 (0.64 - 1.79 ng/dL) 1.39 Coagulation D-Dimer High Sensitivty (0 - 243 ng/ml) < 200 Hematology CBC w Diff MAN DIFF ORDERED MAN DIFF ORDERED WBC (4.8 - 10.8 /CUMM) 4.8 6.0 RBC (4.20 - 5.40 /CUMM) 3.63 L 3.93 L Hgb (12.0 - 16.0 G/DL) 11.1 L 12.1 Hct (37 - 47 %) 31.3 L 33.5 L MCV (81.0 - 99.0 FL) 86.4 85.3 MCH (27.0 - 31.0 PG) 30.8 30.5 MCHC (33.0 - 37.0 G/DL) 35.6 36.0 RDW (11.5 - 14.5 %) 13.9 13.8 Plt Count (130 - 400 /CUMM) 248 272 MPV (7.4 - 10.4 FL) 7.9 7.8 Segmented Neutrophils (42.2 - 75.2 %) 32 L 38 L Band Neutrophils (0.0 - 5.0 %) 2 3 Lymphocytes (20.5 - 51.1 %) 50 52 H Monocytes (1.7 - 9.3 %) 13 H 7 Eosinophils (0 - 5.0 %) 2 Basophils (0.0 - 2.0 %) 1 Platelet Estimate (ADEQUATE) VERIFIED BY SMEAR ADEQUATE Normocytic RBCs VERIFIED VERIFIED Normochromic RBCs VERIFIED VERIFIED Diagnostic Data EKG Results sinus rhythm, no ischemia Assessment/Plan Assessment/Plan Unstable angina in high risk patient. Non invasive testing vs primary cath were discussed with patient and she opted for primary cath, which i think is the better option. Discussed with Dr Alvarez at [facility], will make arrangements to transfer her tomorrow for cath. I would start her on plavix today, with a loading dose of 300mg as i consider the event to be high risk. I would omit tomorrow morning's lisinopril dose, and would give half the dose of detemir. Lovenox should be D/C'd this evening (dont give next dose). Hypertriglyceridemia (>3000) will require med change and close f/u . Patient had myalgia with lipitor, no documented rhabdomyolysis. Diabetes type 2. Consult Acknowledgment - Thank you for your consult request.
[2017-12-06] MEDS ORDERED: ATORVASTATIN CA80 M1 PO (13:03)
[2017-12-06] MEDS ORDERED: ASPIRIN81 M4 PO (13:03)
[2017-12-06] MEDS ORDERED: LISINOPRIL5 M1 PO (13:03)
[2017-12-06] MEDS ORDERED: METOPROLOL TART25 M1 PO (13:03)
[2017-12-06] MEDS ORDERED: TRICOR48 M1 PO (13:03)
--- NOTE | 2017-12-06 13:15 | Patient Discharge Instructions ---
Discharge Instructions General Discharge Information You were seen/treated for: Chest pain You had these procedures: 1. EKG and troponins trended Watch for these problems: 1. returning chest pain 2. SOB 3. fever Special Instructions: 1. Please follow up with Dr. Xavier and Dr. Hawley 2. Please take your meds as prescribed 3. Please follow up with silverlight developer after your discharge Diet Continue normal diet: No Recommended Diet: Heart Healthy, Low Fat Activity Activity Self Limited: Yes Acute Coronary Syndrome Inclusion Criteria At DC or during hospital stay patient has or had the following: ACS DIAGNOSIS Yes Discharge Core Measures Meds if any: Prescribed or Continued at Discharge Meds if any: NOT Prescribed or Continued at Discharge Congestive Heart Failure Inclusion Criteria At DC or during hospital stay patient has or had the following: CHF DIAGNOSIS No Discharge Core Measures Meds if any: Prescribed or Continued at Discharge Meds if any: NOT Prescribed or Continued at Discharge Cerebrovascular accident Inclusion Criteria At DC or during hospital stay patient has or had the following: CVA/TIA Diagnosis No Discharge Core Measures Meds if any: Prescribed or Continued at Discharge Meds if any: NOT Prescribed or Continued at Discharge Venous thromboembolism Inclusion Criteria VTE Diagnosis No VTE Type NONE VTE Confirmed by (Test) NONE Discharge Core Measures - Per Current guidelines, there needs to be overlap - treatment for the first 5 days of Warfarin therapy. - If discharged on Warfarin prior to 5 days of - overlap therapy, the patient will need to be - assessed for post discharge needs including - *Post discharge parental anticoagulation - *Warfarin and/or parental anticoagulation education - *Follow up date to check INR post discharge At least 5 days overlap therapy as Inpatient No Meds if any: Prescribed or Continued at Discharge Note: Overlap Therapy is Warfarin and Anticoagulant Meds if any: NOT Prescribed or Continued at Discharge
[2017-12-06 13:58] VITALS: BP 110/64
--- NOTE | 2017-12-06 16:03 | Discharge Summary ---
See Addendum Visit Information Visit Dates Admission Date: 12/06/17 Discharge Date: 12/07/2017 Hospital Course Course Attending Physician: Gi MARTELL,Rosetta Primary Care Physician: Unknown Hospital Course: This is 47 year-old female with medical history of CAD, myocardial infarction s/ p 2 stent 2006, hypertension, hyperlipidemia, DM type 2 on insulin, migraine, recently diagnosed with obstructive sleep apnea on CPAP. She presented to the emergency department with a chief complaint of substernal chest tightness and pain. She stated that when she woke up day before admission with substernal chest tightness. She report that pain had been on/off, 6-02/14 inseverity, worsening at night time and by exertion and relieved by rest and SL nitro.Given ALLISON 4 there was concern for USA. During hospital stay 3 sets of trops negative. No EKG changes. However, given her previous medical history, signifcant family hx (uncle of [place] in his 40s, [place] in father), pt was deemed high risk and would still benefit from cath. In hospital, she was loaded with Plavix 300mg and resumed ASA and hi dose statin. No IV heparin . Other notable labs include lipid panel TG 3293, Choelsterol 281, HDL 31. HBA1C 9.0. She has historically high TG. She takes statin and fibrate at home and is newly transitioned to Insulin. Endocrinology was consulted and she was counseled on dietary management and pharmacotherapy. She will likely benefit from hi dose Irwin-3 after cardiac catheterization. On AM of cath Lisinopril held. * Will need out pt endo follow up * Needs to follow up with PCP in one week Allergies: Coded Allergies: iodine (Intermediate, RASH, BLISTERS 03/27/17) Pertinent Lab Results: Intake & Output 12/07 1600 12/07 0400 12/06 1600 12/06 0400 12/05 1600 12/05 0400 Intake Total 525 960 0 Output Total Balance 525 960 0 Intake, IV 525 700 Intake, Oral 260 0 Patient 84.567 kg 84.368 kg Weight Weight Bed scale Reported by Patient Measurement Method Laboratory Tests 12/07 12/06 12/06 0635 1320 1320 Chemistry Sodium Pending Potassium Pending Chloride Pending Carbon Dioxide Pending Anion Gap Pending BUN Pending Creatinine Pending BUN/Creatinine Ratio Pending Magnesium (1.6 - 2.3 mg/dL) Cancelled 1.5 L Troponin I (< 0.11 ng/ml) < 0.01 Triglycerides Pending Cholesterol Pending LDL Cholesterol, Calc Pending HDL Cholesterol Pending Cholesterol/HDL Ratio Pending Hematology CBC w Diff Pending WBC Pending RBC Pending Hgb Pending Hct Pending MCV Pending MCH Pending MCHC Pending RDW Pending Plt Count Pending MPV Pending 12/06 12/06 0740 0620 Chemistry Hemoglobin A1c (4.2 - 5.8 %) 9.0 H Toxicology Urine Opiates Screen (>2000 NG/ML) < 100 Methadone Screen (>300 NG/ML) < 40 Barbiturate Screen (>200 NG/ML) < 60 Ur Phencyclidine Scrn (>25 NG/ML) < 6.00 Amphetamines Screen (>1000 NG/ML) < 100 U Benzodiazepines Scrn (>200 NG/ML) < 85 Urine Cocaine Screen (>300 NG/ML) < 50 Urine Cannabis Screen (>50 NG/ML) < 5.00 Urines Urine Color (YEL,AMB,STR) YEL Urine Clarity (CLEAR) CLEAR Urine pH (5.0 - 8.0) 6.0 Ur Specific [place] (1.001 - 1.035) 1.020 Urine Protein (NEG,<30 MG/DL) NEG Urine Ketones (NEG) TRACE H Urine Nitrite (NEG) NEG Urine Bilirubin (NEG) NEG Urine Urobilinogen (0.1 - 1.0 EU/dl) 0.2 Ur Leukocyte Esterase (NEG) NEG Ur Microscopic EXAM NOT REQUIRED Urine Hemoglobin (NEG) NEG Urine Glucose (N MG/DL) >=1000 H 12/06 12/06 0620 0211 Chemistry Sodium (137 - 145 mmol/L) 135 L 132 L Potassium (3.5 - 5.1 mmol/L) 3.2 L 4.6 Chloride (98 - 107 mmol/L) 102 101 Carbon Dioxide (22 - 30 mmol/L) 21 L 17 L Anion Gap (5 - 16) 12 14 BUN (7 - 17 mg/dL) 10 10 Creatinine (0.5 - 1.0 mg/dL) 0.4 L 0.4 L Estimated GFR (>60 ml/min) > 60 > 60 BUN/Creatinine Ratio (7 - 25 %) 25.0 25.0 Glucose (65 - 99 mg/dL) 171 H Calcium (8.4 - 10.2 mg/dL) 8.5 Phosphorus (2.5 - 4.5 mg/dL) 4.9 H Magnesium (1.6 - 2.3 mg/dL) 1.3 L Total Bilirubin (0.2 - 1.3 mg/dL) 1.9 H AST (14 - 36 U/L) 60 H ALT (9 - 52 U/L) 24 Alkaline Phosphatase (<127 U/L) 72 Troponin I (< 0.11 ng/ml) < 0.01 0.02 Total Protein (6.3 - 8.2 g/dL) 7.4 Albumin (3.5 - 5.0 g/dL) 3.7 Globulin (1.9 - 4.2 gm/dL) 3.7 Albumin/Globulin Ratio (1.1 - 2.2 %) 1.0 L Triglycerides (<150 mg/dL) 3293 H Cholesterol (<200 MG/DL) 281 H LDL Cholesterol Direct (<100 mg/dL) < 30.00 LDL Cholesterol, Calc (65 - 129 mg/dL) ND HDL Cholesterol (40 - 60 mg/dL) 31 L Cholesterol/HDL Ratio (0.00 - 4.23 %) 9 H TSH (0.270 - 4.200 uIU/mL) 1.730 Free T4 (0.64 - 1.79 ng/dL) 1.39 Coagulation D-Dimer High Sensitivty (0 - 243 ng/ml) < 200 Hematology CBC w Diff MAN DIFF ORDERED MAN DIFF ORDERED WBC (4.8 - 10.8 /CUMM) 4.8 6.0 RBC (4.20 - 5.40 /CUMM) 3.63 L 3.93 L Hgb (12.0 - 16.0 G/DL) 11.1 L 12.1 Hct (37 - 47 %) 31.3 L 33.5 L MCV (81.0 - 99.0 FL) 86.4 85.3 MCH (27.0 - 31.0 PG) 30.8 30.5 MCHC (33.0 - 37.0 G/DL) 35.6 36.0 RDW (11.5 - 14.5 %) 13.9 13.8 Plt Count (130 - 400 /CUMM) 248 272 MPV (7.4 - 10.4 FL) 7.9 7.8 Segmented Neutrophils (42.2 - 75.2 %) 32 L 38 L Band Neutrophils (0.0 - 5.0 %) 2 3 Lymphocytes (20.5 - 51.1 %) 50 52 H Monocytes (1.7 - 9.3 %) 13 H 7 Eosinophils (0 - 5.0 %) 2 Basophils (0.0 - 2.0 %) 1 Platelet Estimate (ADEQUATE) VERIFIED BY SMEAR ADEQUATE Normocytic RBCs VERIFIED VERIFIED Normochromic RBCs VERIFIED VERIFIED Disposition Summary Disposition Principal Diagnosis: Angina Additional Diagnosis: hyperlipidemia Discharge Disposition: other general hospital Discharge Instructions General Discharge Information Code Status: Full Code Patient's Diet: Consistent carbohydrate with low fat diet Patient's Activity: as tolerated Follow-Up Instructions/Appts: see above Medications at Discharge Discharge Medications: Stop taking the following medications: Cephalexin (Keflex) 500 MG CAPSULE ORAL 4 TIMES A DAY Days = 7 Fenofibrate (Fenofibrate) 40 MG TABLET ORAL DAILY Qty = 30 Continue taking these medications: Rosuvastatin Calcium (Crestor) 40 MG TABLET 1 Tablet ORAL DAILY Qty = 30 Comments: given Lipitor in hospital 12/06/17 @ 1653 Aspirin (Ecotrin*) 81 MG TABLET.DR 1 Tablet ORAL DAILY Qty = 30 Comments: given 12/07/17 @ 1000 Metoprolol Tartrate (Metoprolol Tartrate) 25 MG TABLET 0.5 Tablet ORAL DAILY Qty = 30 Comments: given 12/07/17 @ 1000 Insulin Regular (Novolin R Inj) 1,000 UNITS/10 ML DRE 0 Units Inject into fatty tissue SEE INSTRUCTIONS Qty = 1 Comments: given 12/07/17 @ 0625 Start taking the following new medications: Fenofibrate Nanocrystallized (Tricor) 145 MG TABLET 1 Tablet ORAL DAILY Qty = 30 No Refills Comments: given 12/07/17 @ 1000 Copies To: Zackery MARTELL,Zackery Attending MD Review Statement Documenting Attending: Rosetta Angelo MD Other Findings: [facility] per cardiology. Hemodynamically stable.
--- NOTE | 2017-12-06 18:30 | ECHOCARDIOGRAM REPORT ---
JOSEPH DEE Age: 47 : 1970 Gender: F Exam Date: 12/06/2017 10:54 Exam Location: [facility] Ht (in): 65 Wt (lb): 186 BSA: 2.00 BP: 138 / 62 Ordering Physician: Inocente Myles MD Referring Physician: Inocente Myles MD Technologist: Octavio Green [facility] Room Number: 172-1 Indications: Chest Pain Rhythm: Sinus Technical Quality: good FINDINGS Left Ventricle Normal left ventricular size and systolic function with no obvious regional wall motion abnormalities. Mild LVH. Grade 1 diastolic dysfunction. . The ejection fraction is visually estimated at 60 Right Ventricle The right ventricle is normal in size and function. Right Atrium The right atrium is normal in size. Left Atrium The left atrium is mildly enlarged. The interatrial septum is intact. Mitral Valve The mitral valve is normal in structure and function. There is no mitral regurgitation. Aortic Valve Structurally normal aortic valve without significant sclerosis or stenosis. There is no aortic regurgitation. Tricuspid Valve The tricuspid valve is normal in structure and function. There is no tricuspid regurgitation. Pulmonary artery systolic pressure is normal. Pulmonic Valve Structurally normal pulmonic valve. There is no pulmonic regurgitation. Pericardium Normal pericardium without effusion. No pleural effusion. Great Vessels Normal aortic root dimension. The aortic arch and great vessels are well seen and are normal. CONCLUSIONS Normal left ventricular size and systolic function with no obvious regional wall motion abnormalities. Mild LVH. Grade 1 diastolic dysfunction. The ejection fraction is visually estimated at 60 %. The right ventricle is normal in size and function. The left atrium is mildly enlarged. The mitral valve is normal in structure and function. Structurally normal aortic valve without significant sclerosis or stenosis. Pulmonary artery systolic pressure is normal. Normal aortic root dimension. Normal pericardium without effusion. Bita Salazar M.D. (Electronically Signed) Final Date: 06 Dec 2017 18:30 MEASUREMENTS (Male / Female) Normal Values 2D ECHO LV Diastolic Diameter PLAX 5.0 cm 4.2 - 5.9 / 3.9 - 5.3 cm LV Systolic Diameter PLAX 3.0 cm 2.1 - 4.0 cm LV Fractional Shortening PLAX 40.0 % 25 - 46 % LV Ejection Fraction 2D Teich 70.4 % IVS Diastolic Thickness 1.1 cm LVPW Diastolic Thickness 1.1 cm LV Relative Wall Thickness 0.4 RV Internal Dim ED PLAX 2.3 cm 1.9 - 3.8 cm LVOT Diameter 1.8 cm Aortic Root Diameter 2.4 cm LA Systolic Diameter LX 3.5 cm 3.0 - 4.0 / 2.7 - 3.8 cm LA Volume 39.0 cm 18 - 58 / 22 - 52 cm Ascending Aorta Diameter 2.9 cm DOPPLER AV Peak Velocity 161.0 cm/s AV Peak Gradient 10.4 mmHg AV Mean Velocity 108.0 cm/s AV Mean Gradient 5.0 mmHg AV Velocity Time Integral 32.3 cm LVOT Peak Velocity 107.0 cm/s LVOT Peak Gradient 4.6 mmHg LVOT Mean Velocity 69.5 cm/s LVOT Mean Gradient 2.0 mmHg LVOT Velocity Time Integral 28.5 cm LVOT Stroke Volume 72.5 cm AV Area Cont Eq vti 2.2 cm AV Area Cont Eq pk 1.7 cm MV Peak Velocity 128.0 cm/s MV Peak Gradient 6.6 mmHg MV Mean Velocity 83.1 cm/s MV Mean Gradient 3.0 mmHg Mitral E Point Velocity 104.0 cm/s Mitral A Point Velocity 117.0 cm/s Mitral E to A Ratio 0.9 MV PHT Velocity 118.0 cm/s MV Deceleration Sebastian 483.0 cm/s MV Pressure Half Time 73.3 ms MV Area PHT 3.0 cm MV Deceleration Time 225.0 ms TR Peak Velocity 255.0 cm/s TR Peak Gradient 26.0 mmHg Right Atrial Pressure 5.0 mmHg Pulmonary Artery Systolic Pressu 31.0 mmHg Right Ventricular Systolic Press 31.0 mmHg PV Peak Velocity 106.0 cm/s PV Peak Gradient 4.5 mmHg PV Mean Velocity 72.6 cm/s PV Mean Gradient 2.0 mmHg PV Velocity Time Integral 26.3 cm LV E' Lateral Velocity 8.0 cm/s Mitral E to LV E' Lateral Ratio 13.0 LV E' Septal Velocity 8.1 cm/s Mitral E to LV E' Septal Ratio 12.9
[2017-12-06 21:00] VITALS: BP 142/72
[2017-12-06 23:01] VITALS: BP 88/58
[2017-12-07 00:11] VITALS: BP 108/64
[2017-12-07 06:56] VITALS: BP 110/66
[2017-12-07] MEDS ORDERED: CRESTOR40 M2 PO (07:16)
[2017-12-07] MEDS ORDERED: ASPIRIN EC81 M1 PO (07:17)
[2017-12-07] MEDS ORDERED: FENOFIBRATE PO (07:17)
[2017-12-07] MEDS ORDERED: METOPROLOL TART25 M1 PO (07:19)
[2017-12-07] MEDS ORDERED: NOVOLIN R100 UNIT/1 SC (07:19)
[2017-12-07] MEDS ORDERED: TRICOR145 M1 PO (07:21)
[2017-12-07 08:08] LABS: HEMATOCRIT 32.3 % (37-47); MEAN CORPUSCULAR HGB 29.9 PG (27.0-31.0); MEAN CORPUSCULAR HGB CONC 34.1 G/DL (33.0-37.0); MEAN CORPUSCULAR VOLUME 87.5 FL (81.0-99.0); MEAN PLATELET VOLUME 7.9 FL (7.4-10.4); PLATELET COUNT 232 /CUMM (130-400); RBC DISTRIBUTION WIDTH 14.4 % (11.5-14.5); RED BLOOD CELL CT 3.69 /CUMM (4.20-5.40); WHITE BLOOD CELL COUNT 3.4 /CUMM (4.8-10.8)
--- NOTE | 2017-12-07 09:47 | PN- Cardiology ---
Subjective Subjective: No recurrence of chest pains. No events recorded on cradiac monitoring. No complaints otherwise. Transfer for PCI scheduled today. Objective Vital Signs and I&Os Vital Signs Date Time Temp Pulse Resp B/P B/P Pulse O2 O2 Flow FiO2 Mean Ox Delivery Rate 12/07 0656 98.1 92 18 110/66 95 Room Air / 0013 90 108/64 05/02 0011 108/64 05/ 2301 97.7 94 18 88/58 96 Room Air 12/06 1358 97.6 89 18 110/64 95 Room Air Intake & Output 12/07 1600 12/07 0800 / 0000 12/06 1600 12/06 0800 12/06 0000 Intake Total 525 760 200 Output Total Balance 525 760 200 Intake, IV 525 700 Intake, Oral 60 200 Patient 186 lb 186 lb Weight Weight Bed scale Reported by Patient Measurement Method Current Medications: Current Medications Sig/Amadeo Start time Last Medication Dose Route Stop Time Status Admin Acetaminophen 650 MG Q6P PRN 12/06 0415 AC 12/06 PO 1012 Aspirin 81 MG DAILY 12/06 0900 AC 12/06 PO 0921 Atorvastatin Calcium 80 MG 1700 12/06 1700 CAN PO Atorvastatin Calcium 80 MG 1700 12/06 1700 AC 12/06 PO 1653 Clopidogrel Bisulfate 300 MG ONCE ONE 12/06 1600 DC 12/06 PO 12/06 1601 1653 Dextrose/Sodium 1,000 ML ONCE ONE 12/07 0030 AC 12/07 Chloride IV 12/07 1349 0030 Dextrose/Sodium 1,000 ML ONCE ONE 12/06 0900 DC 12/06 Chloride IV 12/06 2219 0918 Enoxaparin Sodium 40 MG DAILY 12/06 09 DC 12/06 SC 1012 Fenofibrate 145 MG DAILY 12/07 0900 AC PO Fenofibrate 48 MG DAILY 12/06 0900 DC 12/06 PO 0921 Insulin Aspart 0 TIDAC 12/06 1700 DC SC Insulin Detemir 5 UNITS QPM 12/07 2100 AC SC Insulin Detemir 10 UNITS QPM 12/06 2100 DC SC Insulin Human Regular 0 Q6 12/07 0006 AC 12/07 SC 0625 Insulin Human Regular 0 Q6 12/06 0655 DC 12/06 SC 1211 Lisinopril 5 MG DAILY 12/06 0900 DC 12/06 PO 0923 Magnesium Sulfate 1 GM ONCE ONE 12/06 0600 DC 12/06 Dextrose/Water 100 ML IV 12/06 0959 0716 Metoprolol Tartrate 12.5 MG BID 12/06 09 AC 12/07 PO 0013 Morphine Sulfate 2 MG Q4P PRN 12/06 0415 AC IV Nitroglycerin 0.4 MG ONCE PRN 12/06 09 AC SL Omeprazole 40 MG DAILY AC 12/06 0700 AC 12/06 PO 0920 Patient Medication 1 ED ONE ONE 12/06 1830 [place] Teaching ED 12/06 183 Potassium Chloride 40 MEQ Q1 12/06 1000 DC 12/06 PO 12/06 1101 1211 Results Last 48 Hrs of Labs/Mics: Laboratory Tests 12/07/17 0635: Anion Gap 7, Estimated GFR > 60, BUN/Creatinine Ratio 22.5, Triglycerides 2385 H, Cholesterol 245 H, LDL Cholesterol Direct < 30, LDL Cholesterol, Calc ND, HDL Cholesterol 34 L, Cholesterol/HDL Ratio 7 H, CBC w Diff MAN DIFF ORDERED, RBC 3.69 L, MCV 87.5, MCH 29.9, MCHC 34.1, RDW 14.4, MPV 7.9, Segmented Neutrophils 45, Band Neutrophils 2, Lymphocytes 45, Monocytes 5, Eosinophils 2, Basophils 1, Platelet Estimate ADEQUATE, Normocytic RBCs VERIFIED, Normochromic RBCs VERIFIED, Fld Total RBCs Counted 100 12/06/17 1320: Magnesium Cancelled 12/06/17 1320: Magnesium 1.5 L, Troponin I < 0.01 12/06/17 0740: Urine Opiates Screen < 100, Methadone Screen < 40, Barbiturate Screen < 60, Ur Phencyclidine Scrn < 6.00, Amphetamines Screen < 100, U Benzodiazepines Scrn < 85, Urine Cocaine Screen < 50, Urine Cannabis Screen < 5.00, Urine Color YEL, Urine Clarity CLEAR, Urine pH 6.0, Ur Specific [place] 1.020, Urine Protein NEG, Urine Ketones TRACE H, Urine Nitrite NEG, Urine Bilirubin NEG, Urine Urobilinogen 0.2, Ur Leukocyte Esterase NEG, Ur Microscopic EXAM NOT REQUIRED, Urine Hemoglobin NEG, Urine Glucose >=1000 H 12/06/17 0620: Hemoglobin A1c 9.0 H 12/06/17 0620: Anion Gap 12, Estimated GFR > 60, BUN/Creatinine Ratio 25.0, Troponin I < 0.01, Triglycerides 3293 H, Cholesterol 281 H, LDL Cholesterol Direct < 30.00, LDL Cholesterol, Calc ND, HDL Cholesterol 31 L, Cholesterol/HDL Ratio 9 H, CBC w Diff MAN DIFF ORDERED, RBC 3.63 L, MCV 86.4, MCH 30.8, MCHC 35.6, RDW 13.9, MPV 7.9, Segmented Neutrophils 32 L, Band Neutrophils 2, Lymphocytes 50, Monocytes 13 H, Eosinophils 2, Basophils 1, Platelet Estimate VERIFIED BY SMEAR, Normocytic RBCs VERIFIED, Normochromic RBCs VERIFIED 12/06/17 0211: Anion Gap 14, Estimated GFR > 60, BUN/Creatinine Ratio 25.0, Glucose 171 H, Calcium 8.5, Phosphorus 4.9 H, Magnesium 1.3 L, Total Bilirubin 1.9 H, AST 60 H, ALT 24, Alkaline Phosphatase 72, Troponin I 0.02, Total Protein 7.4, Albumin 3.7, Globulin 3.7, Albumin/Globulin Ratio 1.0 L, TSH 1.730, Free T4 1.39, D- Dimer High Sensitivty < 200, CBC w Diff MAN DIFF ORDERED, RBC 3.93 L, MCV 85.3, MCH 30.5, MCHC 36.0, RDW 13.8, MPV 7.8, Segmented Neutrophils 38 L, Band Neutrophils 3, Lymphocytes 52 H, Monocytes 7, Platelet Estimate ADEQUATE, Normocytic RBCs VERIFIED, Normochromic RBCs VERIFIED Assessment/Plan Assessment/Plan Unstable angina in patient with hypertriglyceridemia, diabetes mellitus type 2, hypertension and history of coronary stenting. Stable since admission. PCI with Dr Alvarez at [facility] scheduled for today. No change in medication. Continue telemetry? Yes
[2017-12-07 09:59] VITALS: BP 110/66
--- NOTE | 2017-12-07 11:39 | PN- Diabetes ---
Assessment/Plan Diabetes Assessment: Patient is a 47-year-old female with past medical history of obstructive sleep apnea on CPAP , CAD status post 3 MIs and 2 stents, hypertension, hyperlipidemia and diabetes type 2 which was diagnosed when she was 36 years old. She was admitted for chest pain. She was found to have significantly elevated TRIG of above 3000 and HbA1c of 9.0%. She is going to be transfered to another hospital for CATH today. 1. DM type 2: Levemir was decreased to 5 units daily at bedtime. She is on RISS. Her FSGs were 148, 218, 276 and 171. 2. hypertriglyceridemia: she is on Atorvastatin 80 mg daily and Fenofibrate 145 mg daily; Repeat TRIG 2385, CHOL 245, HDL 34 and LDL < 30. Plan: 1. DM --- she has been KEPT NPO for procedure. I will recommend continue the current insulin regimen for now as her am FSG was 171. ---I will recommend holding off on Farxiga upon discharge. She probably should be on an insulin regimen till her TRIG level is better controlled. 2. hypertriglyceridemia: she is on Atorvastatin 80 mg daily and Fenofibrate 145 mg daily; --- consider adding FISH OIL after CATH is done; --- low fat consistent carbohydrates 1 diet when she is ready to eat; --- continue monitoring her lipid panel. 3. f/u in office after discharge. Subjective Subjective: She has no special complaints this morning. Objective Last 24 Hrs of Vital Signs/I&O Vital Signs Date Time Temp Pulse Resp B/P B/P Pulse O2 O2 Flow FiO2 Mean Ox Delivery Rate 12/07 0959 110/66 12/07 0656 98.1 92 18 110/66 95 Room Air 12/07 0013 90 108/64 12/07 0011 108/64 12/06 2301 97.7 94 18 88/58 96 Room Air 12/06 1358 97.6 89 18 110/64 95 Room Air Intake & Output 12/07 1600 12/07 0800 12/07 0000 Intake Total 525 Output Total Balance 525 Intake, IV 525 Findings Pertinent Lab/Reese Results: Laboratory Tests 12/07 12/06 12/06 0635 1320 1320 Chemistry Sodium (137 - 145 mmol/L) 136 L Potassium (3.5 - 5.1 mmol/L) 3.6 Chloride (98 - 107 mmol/L) 106 Carbon Dioxide (22 - 30 mmol/L) 23 Anion Gap (5 - 16) 7 BUN (7 - 17 mg/dL) 9 Creatinine (0.5 - 1.0 mg/dL) 0.4 L Estimated GFR (>60 ml/min) > 60 BUN/Creatinine Ratio (7 - 25 %) 22.5 Magnesium (1.6 - 2.3 mg/dL) Cancelled 1.5 L Troponin I (< 0.11 ng/ml) < 0.01 Triglycerides (<150 mg/dL) 2385 H Cholesterol (<200 MG/DL) 245 H LDL Cholesterol Direct (<100 mg/dL) < 30 LDL Cholesterol, Calc (65 - 129 MG/DL) ND HDL Cholesterol (40 - 60 mg/dL) 34 L Cholesterol/HDL Ratio (0.00 - 4.23 %) 7 H Hematology CBC w Diff MAN DIFF ORDERED WBC (4.8 - 10.8 /CUMM) 3.4 L RBC (4.20 - 5.40 /CUMM) 3.69 L Hgb (12.0 - 16.0 G/DL) 11.0 L Hct (37 - 47 %) 32.3 L MCV (81.0 - 99.0 FL) 87.5 MCH (27.0 - 31.0 PG) 29.9 MCHC (33.0 - 37.0 G/DL) 34.1 RDW (11.5 - 14.5 %) 14.4 Plt Count (130 - 400 /CUMM) 232 MPV (7.4 - 10.4 FL) 7.9 Segmented Neutrophils (42.2 - 75.2 %) 45 Band Neutrophils (0.0 - 5.0 %) 2 Lymphocytes (20.5 - 51.1 %) 45 Monocytes (1.7 - 9.3 %) 5 Eosinophils (0 - 5.0 %) 2 Basophils (0.0 - 2.0 %) 1 Platelet Estimate (ADEQUATE) ADEQUATE Normocytic RBCs VERIFIED Normochromic RBCs VERIFIED Other Body Source Fld Total RBCs Counted (%) 100
--- NOTE | 2017-12-07 14:25 | PN- Housestaff ---
Subjective Follow-up For: [facility] Subjective: saw pt at bedside no acute overnight events. Tele NSR overnight. She is NPO in preparation for cath today Review of Systems Constitutional: Denies: chills, weakness. EENTM: Reports: no symptoms. Cardiovascular: Denies: chest pain, palpitations. Respiratory: Reports: no symptoms. Gastrointestinal: Reports: no symptoms. Genitourinary: Reports: no symptoms. Musculoskeletal: Reports: no symptoms. Objective Last 24 Hrs of Vital Signs/I&O Vital Signs Date Time Temp Pulse Resp B/P B/P Pulse O2 O2 Flow FiO2 Mean Ox Delivery Rate 12/07 0959 110/66 05/ 0656 98.1 92 18 110/66 95 Room Air 05/ 0013 90 108/64 05/ 0011 108/64 05/ 2301 97.7 94 18 88/58 96 Room Air Intake & Output 12/07 1600 / 0800 12/07 0000 Intake Total 525 Output Total Balance 525 Intake, IV 525 Physical Exam General Appearance: Alert, Oriented X3, Cooperative, No Acute Distress HEENT: Atraumatic, PERRLA, EOMI Neck: Supple Cardiovascular: Regular Rate, Normal S1, Normal S2, No Murmurs Lungs: Normal Air Movement Abdomen: Soft, No Tenderness Extremities: No Edema Current Medications: Current Medications Sig/Amadeo Start time Last Medication Dose Route Stop Time Status Admin Acetaminophen 650 MG Q6P PRN 12/06 0415 DCD 12/06 PO 1012 Aspirin 81 MG DAILY 12/06 0900 DCD 12/07 PO 0959 Atorvastatin Calcium 80 MG 1700 12/06 1700 CAN PO Atorvastatin Calcium 80 MG 1700 12/06 1700 DCD 12/06 PO 1653 Clopidogrel Bisulfate 300 MG ONCE ONE 12/06 1600 DC 12/06 PO 12/06 1601 1653 Dextrose/Sodium 1,000 ML ONCE ONE 12/07 0030 DCD 12/07 Chloride IV 12/07 1349 0030 Dextrose/Sodium 1,000 ML ONCE ONE 12/06 0900 DC 12/06 Chloride IV 12/06 2219 0918 Enoxaparin Sodium 40 MG DAILY 12/06 0900 DC 12/06 SC 1012 Fenofibrate 145 MG DAILY 12/07 0900 DCD 12/07 PO 0958 Fenofibrate 48 MG DAILY 12/06 0900 DC 12/06 PO 0921 Insulin Aspart 0 TIDAC 12/06 1700 DC SC Insulin Detemir 5 UNITS QPM 12/07 2100 DCD SC Insulin Detemir 10 UNITS QPM 12/06 2100 DC SC Insulin Human Regular 0 Q6 12/07 0006 DCD 12/07 SC 0625 Insulin Human Regular 0 Q6 12/06 0655 DC 12/06 SC 1211 Lisinopril 5 MG DAILY 12/06 0900 DC 12/06 PO 0923 Metoprolol Tartrate 12.5 MG BID 12/06 0900 DCD 12/07 PO 0959 Morphine Sulfate 2 MG Q4P PRN 12/06 0415 DCD IV Nitroglycerin 0.4 MG ONCE PRN 12/06 09 DCD SL Omeprazole 40 MG DAILY AC 12/06 0700 DCD 12/06 PO 0920 Patient Medication 1 ED ONE ONE 12/06 1830 DC Teaching ED 12/06 183 Last 24 Hrs of Lab/Reese Results Last 24 Hrs of Labs/Mics: Laboratory Tests 12/07/17 0635: Anion Gap 7, Estimated GFR > 60, BUN/Creatinine Ratio 22.5, Triglycerides 2385 H, Cholesterol 245 H, LDL Cholesterol Direct < 30, LDL Cholesterol, Calc ND, HDL Cholesterol 34 L, Cholesterol/HDL Ratio 7 H, CBC w Diff MAN DIFF ORDERED, RBC 3.69 L, MCV 87.5, MCH 29.9, MCHC 34.1, RDW 14.4, MPV 7.9, Segmented Neutrophils 45, Band Neutrophils 2, Lymphocytes 45, Monocytes 5, Eosinophils 2, Basophils 1, Platelet Estimate ADEQUATE, Normocytic RBCs VERIFIED, Normochromic RBCs VERIFIED, Fld Total RBCs Counted 100 Assessment/Plan Assessment: This allan 47 yo female with PMH of CAD s/p myocardial infarction s/p 2 stent 2006, hypertension, hyperlipidemia, DM type 2 on insulin, migraine, recently diagnosed with obstructive sleep apnea on CPAP and a supposedly normal stress test about one year ago. Given her ALLISON score of 4 and her PMH and strong family hx of coronary disease the pretest probability that pt is having myocardial ischemia related chest pain is very high. She would benfit from aggressive cardiac work up of her chest pain. PLAN 1. Chest pain: * asa * statin * Nitrate PRN * Pt is NPO for cath today * monitor on tele * echo pending * TSH/T4 wnl * Appreciate cardio consult * Lipid panel significantly abnormal (TG >3000) * HBA1c 9.0 * Two sets troponin negative * Con't Metoprolol * Hold lisinopril in anticiption of cath. 2. Hyperlipidemia:TG over 3000. Repeat elevated over 1999 * Pt on statin and fibrate * Appreciate endo consult 3. Hypok: Repleted. FC Chem dvt ppx NPO Problem List: 1. Migraine 2. ACS (acute coronary syndrome) Pain Ratin Pain Location: none Pain Goal: Remain pain free Pain Plan: none Tomorrow's Labs & Rationales: none
== END 2017-12-07 11:48 | disposition short-term general hospital (02) | DRG 198 ==
LOC: ERH 01:48 → 1NO 03:11 → ERHI 03:11 → ENRESERV 03:39 → 1NO 04:44 → ENPENDDIS 12-07 10:28 → 1NO 12-07 11:48
PROVIDERS: Emergency Medicine; Internal Medicine Hematology & Oncology; Student in an Organized Health Care Education/Training Program
DX: I25.110 Atherosclerotic heart disease of native coronary artery with unstable angina pectoris (principal); R07.9 Chest pain, unspecified; G43.909 Migraine, unspecified, not intractable, without status migrainosus; G47.33 Obstructive sleep apnea (adult) (pediatric); Z79.4 Long term (current) use of insulin; I10 Essential (primary) hypertension; E66.9 Obesity, unspecified; Z68.30 Body mass index [BMI] 30.0-30.9, adult; E83.42 Hypomagnesemia; E87.6 Hypokalemia; E78.1 Pure hyperglyceridemia; E11.65 Type 2 diabetes mellitus with hyperglycemia; I25.2 Old myocardial infarction; Z98.61 Coronary angioplasty status; Z79.82 Long term (current) use of aspirin; K21.9 Gastro-esophageal reflux disease without esophagitis
CPT/HCPCS: 1NP; 36592; 71045; 80307; 81003; 82436; 93005; 93010; 93306; 99291; J1650; J1815; J3490; J7042